=== PATIENT | male | born 1955 | race African-American/Black ===

== ENCOUNTER 2025-04-18 07:32 | Emergency (ER) | payer OTHER, MEDICARE ==
[~2025-04-18] VITALS: Ht 182.9 cm; Wt 102.0 kg
[2025-04-18 07:34] VITALS: O2SAT 99
[2025-04-18 09:07] LABS: CLARITY URINE TURBID (CLEAR); COLOR URINE ORANGE (YELLOW); GLUCOSE URINE NEGATIVE (NEGATIVE); KETONES URINE NEGATIVE (NEGATIVE); LEUKOCYTE ESTERASE URINE 1+ (NEGATIVE); NITRITE URINE NEGATIVE (NEGATIVE); OCCULT BLOOD URINE 2+ (NEGATIVE); PH URINE 5.5 (4.5-8.0); PROTEIN URINE 2+ (NEGATIVE); SPECIFIC GRAVITY URINE 1.017 (1.005-1.030); UROBILINOGEN URINE 0.2 E.U./dL (0.2-1.0)
[2025-04-18 09:19] LABS: CREATININE 1.0 mg/dL (0.6-1.3); UREA NITROGEN BLOOD 12 mg/dL (9-23)
[2025-04-18 09:28] LABS: BACTERIA URINE 3+; RBC URINE TNTC /hpf (0-2); SQUAMOUS EPITHELIAL CELL URINE RARE /lpf (RARE/1+); YEAST URINE NONE SEEN
[2025-04-18] MEDS ORDERED: TAMS-54 MT (09:55)
[2025-04-18] MEDS ORDERED: LEVO-65 MT (09:55)
[2025-04-18 10:19] VITALS: BP 153/88; PULSE 65; RESP 18; TEMP 36.7; O2SAT 99
== END 2025-04-18 10:25 | disposition home or self-care (01) ==
LOC: ER 07:32
DX: R33.9 Retention of urine, unspecified (principal); R82.90 Unspecified abnormal findings in urine; I10 Essential (primary) hypertension; Z95.1 Presence of aortocoronary bypass graft; Z79.899 Other long term (current) drug therapy; Z88.5 Allergy status to narcotic agent
CPT/HCPCS: 36415; 51702; 80048; 81003; 99284

== ENCOUNTER 2025-04-20 19:37 | Emergency (ER) | payer MEDICARE, OTHER ==
[~2025-04-20 19:37] MED LIST: LEVO-65 MT; TAMS-54 MT
[2025-04-20 21:09] VITALS: BP 121/82; PULSE 66; RESP 12; TEMP 36.7; O2SAT 98
== END 2025-04-20 21:10 | disposition home or self-care (01) ==
LOC: ER 19:37
DX: R30.9 Painful micturition, unspecified (principal); I10 Essential (primary) hypertension; Z46.6 Encounter for fitting and adjustment of urinary device; Z88.5 Allergy status to narcotic agent
CPT/HCPCS: 99281

== ENCOUNTER 2025-04-22 18:23 | Emergency (ER) | payer MEDICARE ==
[~2025-04-22] VITALS: Ht 180.3 cm; Wt 102.0 kg
[2025-04-22 18:28] VITALS: O2SAT 97
[2025-04-22] MEDS ORDERED: LEVO-65 MT (21:58)
[2025-04-22 22:18] VITALS: BP 124/86; PULSE 72; RESP 18; TEMP 36.6; O2SAT 97
== END 2025-04-22 22:21 | disposition home or self-care (01) ==
LOC: ER 18:23
DX: Z46.6 Encounter for fitting and adjustment of urinary device (principal); I10 Essential (primary) hypertension; Z76.0 Encounter for issue of repeat prescription; N40.0 Benign prostatic hyperplasia without lower urinary tract symptoms; Z95.1 Presence of aortocoronary bypass graft; Z79.899 Other long term (current) drug therapy; Z88.5 Allergy status to narcotic agent
CPT/HCPCS: 99283

== ENCOUNTER 2025-05-22 18:03 | Emergency (ER) | payer MEDICARE ==
[~2025-05-22] VITALS: Ht 182.9 cm; Wt 99.8 kg
[2025-05-22 18:11] VITALS: O2SAT 98
[2025-05-22] MEDS: ASPIRIN 325MG EC TABLET PO ONE (18:37)
[2025-05-22 19:13] LABS: BASOPHILS % 0.8 % (0.0-2.0); EOSINOPHILS % 3.0 % (0.0-5.0); HEMATOCRIT. 51.7 % (42.0-52.0); HEMOGLOBIN. 16.6 g/dL (14.0-18.0); LYMPHOCYTES % 32.5 % (20.0-50.0); MEAN PLATELET VOLUME 8.1 fl (7.4-10.4); MONOCYTES % 10.9 % (2.0-8.0); NEUTROPHILS % 52.8 % (40.0-76.0); PLATELET 186 x1000/uL (130-400); RED BLOOD CELL COUNT 6.10 mill/uL (4.7-6.1); RED CELL DISTRIBUTION WIDTH 14.4 % (11.6-14.6)
[2025-05-22 19:23] LABS: INR 1.0
[2025-05-22 19:27] LABS: CREATININE 1.2 mg/dL (0.6-1.3); UREA NITROGEN BLOOD 16 mg/dL (9-23)
[2025-05-22 19:28] LABS: ASPARTATE AMINOTRANSFERASE 42 IU/L (<34)
[2025-05-22 19:29] LABS: BILIRUBIN DIRECT 0.2 mg/dL (<=3.0); BILIRUBIN TOTAL 0.6 mg/dL (0.1-1.0); PROTEIN TOTAL 7.6 g/dL (6.0-8.3)
[2025-05-22 19:34] LABS: TROPONIN I HIGH SENSITIVITY 271 ng/L (3.0-53)
[2025-05-22] MEDS: TAMSULOSIN HCL 0.4MG SR CAPSULE PO ONE (19:47)
[2025-05-22] MEDS ORDERED: TAMS-54 MT (20:17)
[2025-05-22 20:20] VITALS: BP 162/75; PULSE 68; RESP 16; TEMP 36.7; O2SAT 97
== END 2025-05-22 20:28 | disposition left against medical advice (07) ==
LOC: ER 18:03 → CMPBEDREQ 05-23 09:10
DX: R33.9 Retention of urine, unspecified (principal); R79.89 Other specified abnormal findings of blood chemistry; N40.1 Benign prostatic hyperplasia with lower urinary tract symptoms; I10 Essential (primary) hypertension; Z88.5 Allergy status to narcotic agent; Z95.1 Presence of aortocoronary bypass graft; Z98.890 Other specified postprocedural states
CPT/HCPCS: 36415; 71045; 80048; 80076; 83880; 84484; 85025; 93005; 99285